=== PATIENT | female | born 1950 | race Caucasian/White ===

== ENCOUNTER → 2016-10-07 | Outpatient (CLI) | payer MEDICARE, OTHER ==
[~2016-10-07] MED LIST: CILOSTAZOL50 MG PO; CLARITIN 10MG T10 MG PO; ELIQUIS5 MG PO; FOLIC ACID 1 MG1 MG PO; HYDROCHLOROTHIA25 MG PO; LOSARTAN POTAS100 MG PO; NABUMETONE750 MG PO; SOTALOL80 MG PO; VITAMIN D31000 UNI1 PO
== END ==
LOC: EMI 10-05 17:30
DX: M54.5 Low back pain (principal); M51.36 Other intervertebral disc degeneration, lumbar region; M47.816 Spondylosis without myelopathy or radiculopathy, lumbar region
CPT/HCPCS: 72148